=== PATIENT | female | born 1965 | race Caucasian/White ===

== ENCOUNTER 2023-05-10 19:10 | Emergency (ER) | payer OTHER, SELFPAY ==
[2023-05-10] VITALS (10 sets, daily range): BP systolic 130–156; BP diastolic 75–90; PULSE 69–90; RESP 14–19; TEMP 36.6; O2SAT 99–100; BMI 29.0
--- NOTE | 2023-05-10 19:41 | ED_ITS ---
HPI - Wound/Laceration General: Chief Complaint: Wound/Laceration Stated Complaint: skin tear Time Seen by Provider: 05/10/23 19:26 Source: patient Mode of arrival: ambulatory History of Present Illness: 57-year-old female presents emergency room with a laceration to the posterior aspect of her left forearm. It is full-thickness most of the length of her forearm from the elbow to the interspace of the fourth and fifth finger. No active bleeding. Associated symptoms: Denies chills or fever(s) Review of Systems Const: Denies: fever(s) or chills Card: Denies: chest pain Resp: Denies: dyspnea GI: Denies: abdominal pain : Denies: dysuria, urinary frequency or urinary urgency Musc: Denies: neck pain or back pain Skin/Breast: Denies: rash Physical Exam Const: GENERAL APPEARANCE: cooperative and comfortable ORIENTATIO N/CONSCIOUSNESS: Yes awake, Yes oriented to person, Yes oriented to place and Yes oriented to time HENMT: COMMON NORMALS: normocephalic, atraumatic and hearing grossly normal bilaterally HEAD & SCALP: normocephalic and atraumatic Resp: COMMON NORMALS: normal respiratory effort, No retractions, No use of accessory muscles and clear to auscultation bilaterally AUSCULTATION: clear to auscultation bilaterally Cardio: COMMON NORMALS: regular rate, regular rhythm and No murmurs present (Cardio) RATE: regular rate RHYTHM: regular rhythm Extremity: OTHER: Full-thickness laceration the length of the forearm from the elbow to the interspace between the fourth and fifth fingers Neuro: SENSORIUM/ORIENTATION: Yes oriented to person, Yes oriented to place and Yes oriented to time Procedures Laceration Laceration 1: Site: upper extremity Side (If applicable): left Size (cm): 27.5 Description: linear Depth: simple, single layer Pre-repair: wound explored and irrigated extensively Skin layer closed with: nylon Size (cm): 4-0 Number of sutures: 2 Technique: running Procedural Sedation Indication: laceration repair ASA Class: I Preparation: cardiac catheterization technician applied, pulse oximeter, supplemental O2 applied, suction/airway equipment at bedside and IV secured Fentanyl: IV Midazolam: IV Course Vital Signs: Vital signs: Vital Signs Temperature 98 F 05/10/23 19:22 Pulse Rate 74 05/10/23 20:36 Respiratory Rate 14 05/10/23 20:36 Blood Pressure 130/88 05/10/23 20:36 Pulse Oximetry 100 05/10/23 20:30 Oxygen Delivery Me thod Room Air 05/10/23 20:36 Oxygen Flow Rate 3 05/10/23 20:30 MDM - Wound/Laceration Medical Decision Making Wound closed with 2 running sutures of 4-0 Prolene which were tied near the center of the length of the wound. Overall length was 27.5 cm. Patient given Ancef 1 g and tetanus updated in the emergency room. Discharged home on cepha lexin 750 p.o. twice daily for 7 days. Apply topical mupirocin twice daily to the wound and keep covered. Because of the relatively high risk of some of the wound edges sloughing off from devascularization because of the decreased skin turgor recommended the patient follow-up at wound care clinic in 1 week for evaluation of suture removal and monitoring of the healing of the length of the wound. Medical Records I reviewed the patient's medical records. No radiology studies performed this visit Discharge Plan Discharge Patient Disposition: Home Clinical Impression: Laceration Condition: Stable Prescriptions: New cephalexin 750 mg capsule 750 mg PO BID 7 Days Qty: 14 0RF mupirocin 2 % ointment 1 applic topical BID Qty: 50 0RF Discharge Orders: Discharge ED (Routine); Ordered 05/10/23 Ordered By: Nic Gandhi Discharge Diet: Usual diet Discharge Activity: Resume usual activity Patient Instructions: Opioid Safety, Pain Management Activity Restrictions/Additional Instructions: Thank you for choosing [facility] for your healthcare needs today. Please realize this is an emergency room and that we are providing you with a medical screening exam and this may not be complete and all inclusive of all the testing and or work up that you may need to determine your ailment or severity of your illness. It is very important that you follow up as instructed or that you return to the Emergency Department should you have concerns or if your condition changes or worsens in any way. You are seen today for laceration laceration was closed with running sutures. Due to the size of the laceration and the potential for some of the tissue to become nonvascularized and slough off recommend that you follow-up with wound care clinic for this laceration. Sutures should be removed in 7 to 10 days payroll accounting manager will make arrangements for wound care follow-up in 1 week. 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
[2023-05-10] MEDS: fentaNYL 50 mcg/mL INJ 2mL 100 MCG IVP (19:58)
[2023-05-10] MEDS: midazolam 1 mg/mL INJ 2 mL 4 MG IVP (19:59)
[2023-05-10] MEDS: midazolam 1 mg/mL INJ 2 mL 2 MG IVP (20:18)
[2023-05-10] MEDS: ceFAZolin 1,000 MG in sodium chloride 0.9% (plus) 50 ML 100 MG IV (20:47)
[2023-05-10] MEDS: tetanus-dipt-pertussis 0.5 mL SDV IM (20:48)
--- NOTE | 2023-05-11 07:32 | DCPLANNER ---
Message sent to wound care for 1 week follow up.
== END 2023-05-10 21:17 | disposition home or self-care (01) ==
PROVIDERS: Emergency Provider Family Medicine
DX: S51.812A Laceration without foreign body of left forearm, initial encounter (principal); W54.8XXA Other contact with dog, initial encounter; Z23 Encounter for immunization
CPT/HCPCS: 12006; 90715; 94799; 96365; 99152; 99285; J0690; J2250; J3010

== ENCOUNTER 2023-11-18 10:54 | Outpatient (CLI) | payer OTHER, SELFPAY ==
--- NOTE | 2023-11-18 10:58 | MM_ITS ---
WS: [id number] SCREENING DIGITAL BREAST TOMOSYNTHESIS MAMMOGRAM WITH CAD HISTORY: SCREENING COMPARISON: None available. Bilateral CC and MLO with tomosynthesis and synthetic mammography submitted. Computer aided detection analyzed. Breast composition: There are scattered areas of fibroglandular density. There is a very subtle area of architectural distortion and increased density middle depth LEFT breast just lateral to the nipple line. Not definitely seen on the lateral projection but may be just above the nipple line. Otherwise no abnormalities. MM/[place] [id number] IMPRESSION: BI-RADS: 0-Incomplete: Need additional imaging evaluation FOLLOW UP: Need Additional Imaging LEFT breast: Spot compression views (CC and MLO). True ML. Ultrasound to follow if abnormality persists.
== END 2023-11-18 10:55 | disposition home or self-care (01) ==
PROVIDERS: PCP Nurse Practitioner Family; Visit Provider Nurse Practitioner Family
DX: Z12.31 Encounter for screening mammogram for malignant neoplasm of breast (principal); R92.323 Mammographic fibroglandular density, bilateral breasts; R92.8 Other abnormal and inconclusive findings on diagnostic imaging of breast
CPT/HCPCS: 77063; 77067